=== PATIENT | male | born 1995 | race Caucasian/White ===

== ENCOUNTER 2019-11-27 09:32 | Emergency (ER) | payer SELFPAY ==
[~2019-11-27] VITALS: Ht 188 cm; Wt 79.4 kg
--- NOTE | 2019-11-27 09:47 | NUR ---
PT IS IN ROOM #2A. DR NEWTON EVALUATED THE PT.
--- NOTE | 2019-11-27 10:01 | NUR ---
PT WAS D/C'd TO HOME. D/C INSTRUCTIONS GIVEN TO THE PT.
[2019-11-27 10:02] VITALS: BP 121/70
== END 2019-11-27 10:03 | disposition home or self-care (01) ==
LOC: ER 09:32
DX: J02.9 Acute pharyngitis, unspecified (principal)
CPT/HCPCS: A4663

== ENCOUNTER 2019-11-28 18:22 | Emergency (ER) | payer SELFPAY ==
[~2019-11-28] VITALS: Ht 188 cm; Wt 79.4 kg
--- NOTE | 2019-11-28 18:28 | NUR ---
Dr Brown at the bedside for MSE.
[2019-11-28 18:51] VITALS: BP 123/74
--- NOTE | 2019-11-28 18:52 | NUR ---
Patient discharged to home in stable condition. Written and verbal after care instructions given. Patient verbalizes understanding of instructions. Stressed follow up or return to ER for worsening of s/s.
== END 2019-11-28 18:53 | disposition home or self-care (01) ==
LOC: ER 18:24
DX: J36 Peritonsillar abscess (principal)
CPT/HCPCS: A4663